=== PATIENT | female | born 1935 | race Caucasian/White ===

== ENCOUNTER 2017-07-12 16:53 | Emergency (ER) | payer OTHER, BC ==
[~2017-07-12] VITALS: Ht 160 cm; Wt 54.5 kg
[~2017-07-12 16:53] MED LIST: AMLODIPINE BESYL5 MG PO; ATIVAN INTE2 MG/1 ML PO; ATROPINE 1100 DROP/5 SL; Benadryl PO; CALCIUM 500 MG1 EACH PO; FUROSEMIDE20 MG PO; LIDODERM 5% P1 PATCH TD; LISINOPRIL10 MG PO; LO-DOSE ASPIRIN81 M1 PO; MICROZIDE12.5 M1 PO; MORPHINE CON20 MG/M1 PO; MOTRIN; MOTRIN400 MG PO; NORVASC5 M1 PO; SIMVASTATIN20 MG PO; SOMA350 M1 PO; SOMA350 MG PO; TYLENOL WITH C1 EACH PO; TYLENOL WITH CODEINE; VITAMIN D31000 UNI2 PO; ZEBETA10 MG PO; ZIAC 10/6.251 TABLET PO; [UNRECOGNIZED DRUG - OTHER]
[2017-07-12 21:56] VITALS: BP 138/95
== END 2017-07-12 21:57 | disposition home or self-care (01) ==
LOC: EME 16:53
DX: T18.108A Unspecified foreign body in esophagus causing other injury, initial encounter (principal); R05 Cough; I10 Essential (primary) hypertension; E78.5 Hyperlipidemia, unspecified; M06.9 Rheumatoid arthritis, unspecified; Z79.82 Long term (current) use of aspirin; Z87.891 Personal history of nicotine dependence; Z88.0 Allergy status to penicillin; Z88.8 Allergy status to other drugs, medicaments and biological substances
CPT/HCPCS: 71020; 82948; 99281; 99284

== ENCOUNTER 2017-10-25 13:47 | Inpatient (IN) | payer OTHER, BC ==
[~2017-10-25] VITALS: Ht 157.5 cm; Wt 42.0 kg
[~2017-10-25 13:47] MED LIST changes: -LISINOPRIL10 MG PO; +PRINIVIL20 MG PO
[2017-10-25 15:10] LABS: HEMATOCRIT 31.8 % (36.0-46.0); HEMOGLOBIN 11.4 G/DL (11.9-15.5); MCH 31.3 PG (29.0-34.0); MCHC 35.8 G/DL (30.0-36.0); MCV 87.4 FL (83-99); PLATELET COUNT 144 K/uL (156-360); RBC DIS.WIDTH-CV 13.2 % (11.8-14.6); RBC DIS.WIDTH-SD 41.7 % (39-53); RED BLOOD COUNT 3.64 M/uL (3.80-5.20); WHITE BLOOD COUNT 5.7 K/uL (4.1-10.2)
[2017-10-25 15:18] LABS: ALBUMIN 3.5 g/dL (3.2-4.8)
[2017-10-25 15:19] LABS: CHLORIDE 91 mEq/L (99-109); POTASSIUM 4.4 mEq/L (3.7-5.4); SODIUM 124 mEq/L (136-147)
[2017-10-25 15:21] LABS: GLUCOSE 101 mg/dL (70-99); TOTAL PROTEIN 5.9 g/dL (6.4-8.3)
[2017-10-25 15:23] LABS: TOTAL BILIRUBIN 0.3 mg/dL (0.0-1.0)
[2017-10-25 15:24] LABS: ALKALINE PHOSPHATASE 103 IU/L (3-129)
[2017-10-25 15:25] LABS: CREATININE 0.7 mg/dL (0.6-1.3); GFR ESTIMATE (CALCULATED) > 59 mL/min/
[2017-10-25 15:26] LABS: AST (GOT) 40 IU/L (2-34); UREA NITROGEN (BUN) 10 mg/dL (9-23)
[2017-10-25 15:27] LABS: ALT (GPT) 23 IU/L (3-49)
[2017-10-25] MEDS ORDERED: CATAPRES0.1 MG PO (17:22)
[2017-10-25 17:36] LABS: APPEARANCE CLEAR ((CLEAR)); BILIRUBIN NEGATIVE; BLOOD NEGATIVE; COLOR STRAW ((YELLOW)); GLUCOSE (STRIP) NEGATIVE; KETONES NEGATIVE; LEUKOCYTES NEGATIVE; NITRITE NEGATIVE; PROTEIN (STRIP) NEGATIVE; SPECIFIC GRAVITY 1.006 (1.000-1.030); UCUL ADDED? NO; UROBILINOGEN 0.2 MG/DL (0.2-1.0)
[2017-10-25 18:26] VITALS: BP 171/97
[2017-10-25 18:28] LABS: URIC ACID 3.9 mg/dL (3.1-9.2)
[2017-10-25 19:00] LABS: THYROTROPIN (TSH) 1.4 MIU/L (0.4-5.5)
[2017-10-25 19:16] VITALS: BP 187/101
[2017-10-25 21:17] LABS: CHLORIDE 93 MEQ/L (99-109); CREATININE 0.5 MG/DL (0.6-1.3); GFR ESTIMATE (CALCULATED) > 59 mL/min/; GLUCOSE 88 mg/dL (70-99); SODIUM 126 MEQ/L (136-147); UREA NITROGEN (BUN) 8 mg/dL (9-23)
[2017-10-25 23:40] VITALS: BP 141/72
[2017-10-26 03:35] VITALS: BP 170/94
[2017-10-26 06:33] LABS: HEMATOCRIT 33.3 % (36.0-46.0); HEMOGLOBIN 11.9 G/DL (11.9-15.5); MCH 31.6 PG (29.0-34.0); MCHC 35.7 G/DL (30.0-36.0); MCV 88.6 FL (83-99); PLATELET COUNT 147 K/uL (156-360); RBC DIS.WIDTH-CV 13.2 % (11.8-14.6); RBC DIS.WIDTH-SD 42.7 % (39-53); RED BLOOD COUNT 3.76 M/uL (3.80-5.20); WHITE BLOOD COUNT 5.2 K/uL (4.1-10.2)
[2017-10-26 06:48] LABS: CHLORIDE 96 MEQ/L (99-109); CREATININE 0.5 MG/DL (0.6-1.3); GFR ESTIMATE (CALCULATED) > 59 mL/min/; GLUCOSE 84 mg/dL (70-99); POTASSIUM 3.8 MEQ/L (3.7-5.4); SODIUM 129 MEQ/L (136-147); UREA NITROGEN (BUN) 9 mg/dL (9-23)
[2017-10-26 07:49] VITALS: BP 140/68
[2017-10-26 11:32] VITALS: BP 170/85
[2017-10-26 15:23] VITALS: BP 182/98
[2017-10-26 19:32] VITALS: BP 199/113
[2017-10-26 23:37] VITALS: BP 141/81
[2017-10-27 04:23] VITALS: BP 182/96
[2017-10-27 06:07] LABS: HEMATOCRIT 34.2 % (36.0-46.0); MCH 31.1 PG (29.0-34.0); MCHC 35.1 G/DL (30.0-36.0); MCV 88.6 FL (83-99); PLATELET COUNT 159 K/uL (156-360); RBC DIS.WIDTH-CV 13.4 % (11.8-14.6); RBC DIS.WIDTH-SD 43.4 % (39-53); RED BLOOD COUNT 3.86 M/uL (3.80-5.20); WHITE BLOOD COUNT 6.5 K/uL (4.1-10.2)
[2017-10-27 06:36] LABS: CHLORIDE 97 MEQ/L (99-109); CREATININE 0.6 MG/DL (0.6-1.3); GFR ESTIMATE (CALCULATED) > 59 mL/min/; GLUCOSE 84 mg/dL (70-99); POTASSIUM 3.7 MEQ/L (3.7-5.4); SODIUM 133 MEQ/L (136-147); UREA NITROGEN (BUN) 14 mg/dL (9-23)
[2017-10-27 08:00] VITALS: BP 173/104
[2017-10-27 11:33] VITALS: BP 189/98
[2017-10-27 15:49] VITALS: BP 175/98
[2017-10-27 19:57] VITALS: BP 200/127
[2017-10-28] VITALS (7 sets, daily range): BP systolic 149–185; BP diastolic 81–111
[2017-10-28 06:44] LABS: HEMOGLOBIN 12.2 G/DL (11.9-15.5); MCH 31.1 PG (29.0-34.0); MCHC 34.9 G/DL (30.0-36.0); MCV 89.3 FL (83-99); PLATELET COUNT 165 K/uL (156-360); RBC DIS.WIDTH-CV 13.8 % (11.8-14.6); RED BLOOD COUNT 3.92 M/uL (3.80-5.20); WHITE BLOOD COUNT 7.1 K/uL (4.1-10.2)
[2017-10-28 07:09] LABS: CHLORIDE 99 MEQ/L (99-109); CREATININE 0.6 MG/DL (0.6-1.3); GFR ESTIMATE (CALCULATED) > 59 mL/min/; GLUCOSE 101 mg/dL (70-99); POTASSIUM 3.6 MEQ/L (3.7-5.4); SODIUM 135 MEQ/L (136-147); UREA NITROGEN (BUN) 16 mg/dL (9-23)
[2017-10-29 02:02] LABS: CHLORIDE 100 mEq/L (99-109); POTASSIUM 3.1 mEq/L (3.7-5.4); SODIUM 137 mEq/L (136-147)
[2017-10-29 02:03] LABS: GLUCOSE 83 mg/dL (70-99)
[2017-10-29 02:07] LABS: CREATININE 0.7 mg/dL (0.6-1.3); GFR ESTIMATE (CALCULATED) > 59 mL/min/
[2017-10-29 02:08] LABS: UREA NITROGEN (BUN) 19 mg/dL (9-23)
[2017-10-29 04:00] VITALS: BP 124/65
[2017-10-29 07:18] VITALS: BP 127/64
[2017-10-29 11:11] VITALS: BP 131/72
[2017-10-29 15:15] VITALS: BP 101/57
[2017-10-29 20:25] VITALS: BP 126/67
[2017-10-29 23:55] VITALS: BP 149/81
[2017-10-30 03:44] VITALS: BP 114/56
[2017-10-30 06:06] LABS: BASE EXCESS 2.5 mEq/L (-3 to +3); BICARBONATE 27.2 mEq/L (22-26); CARBOXY HGB 1.8 % (0-5); COMMENTS - BLOOD GASES C+; DEVICE NRBM; METHEMOGLOBIN 1.1 % (0-1.5); PCO2 42 mm Hg (35-45); PO2 231 mm Hg (80-100); SITE RB; pH 7.42 (7.35-7.45)
[2017-10-30 06:20] VITALS: BP 61/32
[2017-10-30 06:34] LABS: CHLORIDE 106 MEQ/L (99-109); GFR ESTIMATE (CALCULATED) 57 mL/min/; GLUCOSE 108 mg/dL (70-99); POTASSIUM 5.1 MEQ/L (3.7-5.4); SODIUM 138 MEQ/L (136-147); UREA NITROGEN (BUN) 35 mg/dL (9-23)
[2017-10-30 07:00] VITALS: BP 88/55
[2017-10-30 07:57] VITALS: BP 82/48
[2017-10-30 11:31] VITALS: BP 74/52
[2017-10-30] MEDS ORDERED: ATIVAN0.5 MG PO (15:41)
[2017-10-30] MEDS ORDERED: ANASPAZ0.125 MG PO (15:41)
[2017-10-30] MEDS ORDERED: MORPHINE CON20 MG/M1 PO (15:41)
== END 2017-10-30 18:15 | disposition hospice, home (50) | DRG 640 ==
LOC: EME 13:47 → 5SOUTH 16:56 → EDOF 16:56 → ENRESERV 16:58 → 5SOUTH 18:01
PROVIDERS: Emergency Medicine; Hospitalist; Internal Medicine; Internal Medicine Nephrology; Physician Assistant Medical
DX: E87.1 Hypo-osmolality and hyponatremia (principal); G82.50 Quadriplegia, unspecified; E46 Unspecified protein-calorie malnutrition; R62.7 Adult failure to thrive; R13.12 Dysphagia, oropharyngeal phase; Z68.1 Body mass index [BMI] 19.9 or less, adult; F05 Delirium due to known physiological condition; Z51.5 Encounter for palliative care; Z66 Do not resuscitate; E78.5 Hyperlipidemia, unspecified; E87.6 Hypokalemia; I10 Essential (primary) hypertension; M06.9 Rheumatoid arthritis, unspecified; G89.29 Other chronic pain; R15.9 Full incontinence of feces; R32 Unspecified urinary incontinence; M43.6 Torticollis; M24.50 Contracture, unspecified joint; G35 Multiple sclerosis; I87.8 Other specified disorders of veins; R54 Age-related physical debility; M62.58 Muscle wasting and atrophy, not elsewhere classified, other site; M41.9 Scoliosis, unspecified; Z74.01 Bed confinement status; Z79.82 Long term (current) use of aspirin; Z87.01 Personal history of pneumonia (recurrent); Z87.891 Personal history of nicotine dependence; Z88.0 Allergy status to penicillin; Z82.49 Family history of ischemic heart disease and other diseases of the circulatory system
CPT/HCPCS: 36600; 71045; 74220; 74230; 80048; 80048 91; 80053; 81003; 82140; 82803; 82948; 83605; 83935; 84300; 84443; 84550; 85027; 87040; 92526 GN; 92610 GN; 92611 GN; 99281; 99285; C1755; J0360; J1650; J3480; J7030; J7040